=== PATIENT | male | born 1975 | race Caucasian/White ===

== ENCOUNTER 2019-11-26 16:54 | Emergency (ER) | payer OTHER, SELFPAY ==
[2019-11-26] VITALS (13 sets, daily range): BP systolic 122–149; BP diastolic 75–97; PULSE 70–93; RESP 16–22; O2SAT 94–97
--- NOTE | 2019-11-26 16:45 | RT.EKG_ITS ---
APPROVED REPORT Exam: Resting ECG Patient Location: E HR:83 bpm ECG Measurements Heart Rate 83 AXIS TX 168 P 40 QRSd 92 QRS 59 QT 341 T 36 QTc 402 Conclusion Sinus rhythm...normal P axis, V-rate 60- 99
--- NOTE | 2019-11-26 17:06 | ED.GENADUL_ITS ---
Discharge Plan Disposition Patient Disposition: HOME Condition: Good Discharge Details Clinical Impression: Atypical chest pain Primary Care Provider: Merlyn Hood ED Provider: Margaret Knight Home Meds and New Rx's Prescriptions: No Action No Known Home Meds RF: 0 Discharge Instructions Instructions: Chest Pain (ED) Additional Instructions: Continue to encourage water intake. Please follow-up closely with your primary care. Call tomorrow to schedule appointment in the next 1 to 2 weeks. Your exam, labs and imaging are reassuring here today. However, if you develop any increased pain, exertional symptoms, shortness of breath, fevers or any other new/worsening symptoms please seek care urgently once again. Referrals: Merlyn Hood, [employer]PARATION SUPERVISOR [Primary Care Provider] - Discharge Data Discharge Date/Time-TO BE ENTERED AT DEPARTURE: 11/26/19 18:35 Medical Decision Making Patient is a pleasant 44 year old male presenting today with c/c of intermittent chest pain x2 weeks. He states when he has the chest pain is localized to upon size. Left anterior chest. States that it is not reproducible or reliably brought on by any particular activity. He reports he has been trying to monitor for things that may improve or exacerbate his discomfort is not noted any as of yet. 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 He denies any shortness of breath. Denies any nausea vomiting. Denies any radiation of pain. He denies any trauma. No rash. No pain like this historically. He denies any personal or familial history of ischemic cardiac disease. Does not note any change in his appetite or symptoms associated with p.o. intake. On exam, patient is resting comfortably. His exam is benign. He has no pain is reproducible. No rash. Lungs are clear. Normal cardiac exam. Plan to obtain labs chest x-ray. Consider ACS although this is not exertional I find this less likely. Has not had any shortness of breath, O2 saturation is in the high 90s and his heart rate is currently in the 80s. Patient's PERC score is negative. His history and exam is not consistent with aortic injury. He is not given red flags to suggest any esophageal symptoms. At this time, he is asymptomatic. EKG was reviewed by Dr. Spicer. No acute ischemic process is noted. FINDINGS: Lungs: No consolidation. Pleural space: No pleural effusion. No pneumothorax. Heart/Mediastinum: No cardiomegaly. Bones/joints: No acute fracture. IMPRESSION: No acute cardiopulmonary pathology. Labs reviewed. No leukocytosis. Stable H&H. CMP is without any abnormality. Troponin is less than 0.05. At this time, the patient has been asymptomatic but has had this intermittent chest pain for the past 2 weeks, I do not feel that repeat troponin is warranted. However, I would like for him to follow-up closely with his primary care. Patient was given strict return precautions. He seems quite relieved that work-up done thus far has been negative. We did discuss that this could be associate with stress and he finds unlikely will continue to monitor. All his questions and concerns were addressed and is agreement this plan. HPI General Mode of arrival: ambulatory . Date/Time Provider Initiated Documentation: 11/26/19 17:06 . Limitations to Documentation: no limitations . Information obtained by: patient and RN notes reviewed . History of Present Illness 44 year old M presents to the emergency department with the chief complaint of chest pain, described as mild (reports no pain currently), with intensity rated at 2 (when pain is active). Quality is described as other (tight), and is localized to the chest. Patient reports no radiation. Patient started experiencing this week(s) (2) and it has been intermittent (will last a few minutes and spontaneously resolve). No relieving factors improve symptom(s), No exacerbating factors reported (no clear onset, does not notice when he is active) . Patient notes no other symptoms.. Patient did receive the following treatments prior to arrival, none Related Data Home Medications Medication Instructions Recorded Confirmed Unknown [No Known Home Meds] 11/26/19 11/26/19 Allergies Allergy/AdvReac Type Severity Reaction Status Date / Time No Known Allergies Allergy Unverified 11/26/19 17:48 General Stated Complaint: Chest Pain [place]: 2 Review of Systems Constitutional Constitutional: Reports as per HPI, Denies chills, Denies fever(s), Denies headache(s), Denies lethargy and Denies poor appetite Eyes Eyes: Denies change in vision ENT Ears, Nose, Mouth, and Throat: Denies dizziness and Denies headache(s) Cardiovascular Cardiovascular: Reports as per HPI, Denies dyspnea and Denies dyspnea on exertion Respiratory Respiratory: Reports as per HPI, Denies chest congestion, Denies cough, Denies pain on inspiration, Denies pain with cough, Denies dyspnea, Denies dyspnea on e xertion and Denies wheezing Gastrointestinal Gastrointestinal: Reports as per HPI, Denies abdominal pain, Denies diarrhea, Denies nausea and Denies vomiting Genitourinary Genitourinary: Denies system reviewed and no additional complaints, except as documented (denies change in urinary habits) Musculoskeletal Musculoskeletal: Reports as per HPI and Denies back pain Integumentary/Breasts Skin/Breast: Reports as per HPI and Denies rash Neurologic Neurologic: Reports as per HPI, Denies dizziness and Denies headache(s) Allergic/Immunologic Allergic/Immunologic: Denies wheezing [facility] Social History Smoking/Tobacco Use Status: Never Alcohol Intake: never Substance use type: does not use Do you feel safe at home: Yes Do you feel safe in your relationship?: Yes Exam Const General: cooperative, healthy appearing, comfortable, no acute distress and well developed Nutritional Appearance: average body habitus and well nourished Orientation: alert, awake and oriented x3 HENMT Head: normal to inspection Ears: hearing grossly normal bilaterally Mouth: moist mucous membranes Chest Chest: normal inspection of the chest, normal palpation of entire chest wall and no crepitus Resp Effort & Inspection: normal respiratory effort, able to speak in complete sentences and no respiratory distress Auscultation: clear to auscultation bilaterally, no rales, no rhonchi and no wheezes Cardio Rate: regular rate Rhythm: regular rhythm Heart Sounds: S1 normal and S2 normal GI Inspection: normal to inspection, no edema and non-distended Palpation: soft, no hepatosplenomegaly, not firm, no guarding, not rigid and nontender Auscultation: normal bowel sounds Back/Spine/Pelvis Back: no CVA tenderness Thoracic/Lumbar Spine: thoracic and lumbar spine normal to inspection Skin General skin exam: no rashes or lesions noted Trauma: no lacerations or abrasions Neuro General: patient alert, patient awake and patient oriented x3 Cognition: normal cognition Speech: speech normal Gait: normal gait Extrem General: normal to inspection, capillary refill normal, no pedal edema, no calf tenderness and normal gait Psych Appearance: grossly normal and well kempt Mental Status: mental status grossly normal Speech and Movement: speech and movement normal Course Vital Signs Vital signs: Vital Signs Pulse 93 H 11/26/19 17:03 Respiratory Rate 16 11/26/19 17:03 Blood Pressure 149/97 H 11/26/19 17:03 Pulse Oximetry 97 11/26/19 17:03 Temperature Source Tympanic 11/26/19 17:03 Pulse 93 H 11/26/19 17:03 Respiratory Rate 16 11/26/19 17:03 Blood Pressure 149/97 H 11/26/19 17:03 Blood Pressure Position Sitting 11/26/19 17:03 Pulse Oximetry 97 11/26/19 17:03 Oxygen Delivery Method Room Air 11/26/19 17:03 Oxygen Flow Rate 0 11/26/19 17:03 Pain Level 2 11/26/19 17:03
[2019-11-26 17:39] LABS: Abs Immature Grans 0.01 10^3/uL (0.0-0.06); Absolute Basophil Count 0.01 10^3/uL (0.0-0.2); Absolute Eosinophil Count 0.14 10^3/uL (0.0-0.7); Absolute Lymphocyte Count 2.72 10^3/uL (1.2-3.4); Absolute Monocyte Count 0.67 10^3/uL (0.1-0.8); Absolute Neutrophil Count 2.71 10^3/uL (1.2-6.7); Basophils % 0.2; Eosinophils % 2.2; Immature Grans % 0.2; Lymphocytes % 43.5; MCH 29.9 pg (27.0-33.0); MCHC 35.6 % (32.0-36.0); MCV 84.1 fL (80-95); MPV 10.2 fL (8.0-11.0); Monocytes % 10.7; Neutrophils % 43.2; Nucleated RBC 0 %; Platelet Count 228 10^3/uL (130-400); RBC 5.35 10^6/uL (4.36-5.78); RDW 12.5 % (11.8-14.1); RDW-SD 37.3 fL; WBC 6.26 10^3/uL (4.4-10.8)
[2019-11-26 17:53] LABS: ALT 40 U/L (16-63); AST 21 U/L (15-37); Albumin 4.3 g/dL (3.4-5.0); Alkaline Phosphatase 54 U/L (46-116); Anion Gap 8.5 mmol/L (3-11); BUN 18 mg/dL (7-18); Bilirubin, Total 0.7 mg/dL (0.2-1.0); CO2 27.5 mmol/L (21.0-32.0); CREATININE 1.11 mg/dL (0.70-1.30); Calcium 9.5 mg/dL (8.5-10.1); Chloride 105 mmol/L (98-107); Glucose 105 mg/dL (74-106); Magnesium 2.2 mg/dL (1.8-2.4); Potassium 3.8 mmol/L (3.5-5.1); Sodium 141 mmol/L (136-145); Total Protein 7.4 g/dL (6.4-8.2)
[2019-11-26 17:54] LABS: Troponin I < 0.05 ng/mL (<0.06)
--- NOTE | 2019-11-26 18:06 | DI.RAD_ITS ---
EXAM: XR CHEST 2V PA LATERAL CLINICAL HISTORY: CP TECHNIQUE: 2D digital imaging was performed. COMPARISON: CR CHEST 2 VIEWS PA,LAT from 05/06/2008 FINDINGS: MEDIASTINUM: Normal. HEART: Normal. PULMONARY VASCULATURE: Normal. LUNGS: Clear. PLEURAL SPACE: No pleural effusion or pneumothorax. BONE:Within normal limits for the patient's age. OTHER FINDINGS:Normal. IMPRESSION: No acute pulmonary findings. DATA REPOSITORY: RADIATION DOSE DELIVERED:
--- NOTE | 2019-11-26 18:13 | DI.VRAD_ITS ---
PROCEDURE INFORMATION: Exam: XR Chest, 2 Views Exam date and time: 11/26/2019 18:03 Age: 44 years old Clinical indication: Chest pain TECHNIQUE: Imaging protocol: XR of the chest Views: 2 views. COMPARISON: No relevant prior studies available. FINDINGS: Lungs: No consolidation. Pleural space: No pleural effusion. No pneumothorax. Heart/Mediastinum: No cardiomegaly. Bones/joints: No acute fracture. IMPRESSION: No acute cardiopulmonary pathology. Dictated and Authenticated by: Azalea Kilpatrick MD. Ordering:EMMANUEL Robles MD
== END 2019-11-26 18:35 | disposition home or self-care (01) ==
PROVIDERS: Emergency Provider Physician Assistant; PCP Nurse Practitioner Family
DX: R07.89 Other chest pain (principal)
CPT/HCPCS: 36415; 80053; 93005; 99285; 71046; 83735; 84484; 85025; 93010; 99284

== ENCOUNTER 2021-04-04 14:28 | Outpatient (REF) | payer BC, SELFPAY ==
[2021-04-05 11:03] LABS: Campylobacter PCR Negative (Negative); Salmonella PCR Negative (Negative); Shiga Toxin PCR Negative (Negative); Shigella/Enteroinvasive Ecoli Negative (Negative)
== END 2021-04-04 14:29 | disposition home or self-care (01) ==
LOC: NCHCN 14:28
PROVIDERS: PCP Nurse Practitioner Family; Visit Provider Physician Assistant
DX: R19.7 Diarrhea, unspecified (principal)
CPT/HCPCS: 87329; 87505

== ENCOUNTER 2021-06-12 02:09 | Outpatient (CLI) | payer BC, SELFPAY ==
[2021-06-12 09:35] LABS: Source Nasal/Nares
[2021-06-12 12:08] LABS: COVID-19 PCR Negative (Negative)
== END 2021-06-12 02:10 | disposition home or self-care (01) ==
LOC: LBO 02:09
PROVIDERS: PCP Physician Assistant; Visit Provider Surgery
DX: Z20.822 Contact with and (suspected) exposure to COVID-19 (principal); Z01.818 Encounter for other preprocedural examination
CPT/HCPCS: 87635

== ENCOUNTER 2021-06-13 07:04 | Day surgery (SDC) | payer BC, SELFPAY ==
--- NOTE | 2021-06-12 12:12 | W.PM.DSUDISC ---
Discharge Plan Disposition Patient Disposition: HOME Condition: Good Discharge Details Reason For Visit: colons scope Attending Provider: Akilah Queen Primary Care Provider: Jose Manuel Rivas Home Meds and New Rx's Prescriptions: Discontinued bisacodyl [Dulcolax (bisacodyl)] 5 mg tablet,delayed release (DR/EC) 5 mg PO ONCE Qty: 4 0RF Rx Instructions: Take according to provider's instructions for colonoscopy prep. polyethylene glycol 3350 17 gram/dose powder 17 g PO ONCE Qty: 238 0RF Rx Instructions: To be taken as directed by prescriber's office for colonoscopy prep. Discharge Instructions Additional Instructions: DSU Colonoscopy Post-Op Instructions Instructions for Everyone who is given Anesthesia: For your safety, please do the following for the next twenty-four (24) hours: *Do Not operate a motor vehicle (car, truck, motorcycle, etc.) *Do Not drink alcoholic beverages or use any recreational drugs for the first 24 hours or while taking pain medications. The medications in your body may have a reaction that can be dangerous. *Do Not make any important decisions or sign any important papers. Findings: Follow up: 1. No lifting over 20 pounds or strenuous activity for the first 24 hours after your procedure. After 24 hours there are no restrictions on your activity but you may feel fatigued for a few days. 2. After you arrive home you may have a light meal and return to your normal diet as you can tolerate it without feeling sick to your stomach. 3. You may have a bloated, gaseous feeling in your belly (abdomen) after a colonoscopy. Passing gas and belching will help. Walking or lying down on your left side with your knees flexed may relieve the discomfort. Call the office at [phone] (Office) or [phone] (Hospital) right away if you notice any of the following: a.Vomiting of blood or ?coffee ground stools?. b.Rectal bleeding 1Tbsp, blood clots or continuous bleeding. c.Severe belly (abdominal) pain. d.A hard distended belly (abdomen) and an inability to pass gas. 4. Please don?t expect to have a normal BM (bowel movement) for 2-3 days after your procedure. 5. If there are questions regarding the findings of your procedure, please contact your doctor 6. If you are unable to contact your doctor with a problem, contact the [facility] at [phone]. 7. Continue all your regular medications unless directed otherwise. I understand the above instructions and have no questions. Signature of Patient or Adult Escort Name of Responsible Adult Escort Signature of Nurse Date/Time Activity:: see above Diet:: see above
--- NOTE | 2021-06-12 12:13 | W.COLOREPORT ---
Colonoscopy Report Date of procedure: 06/13/21 Pre-op diagnosis general: bloody diarrhea Surgeon: Akilah Queen Anesthesia Type: General:No Airway Disposition: same day Prep: Miralax/Dulcolax Retraction Time: 10 Procedure Description: After informed consent was obtained the patient was taken to the procedure room and placed in a left decubitous position. Monitors were applied and a time out was done. The patients name, date of , procedure, allergies to medications and metal in their body was reviewed. The patient was then sedated. Once sedated and comfortable a rectal exam was done. External exam was normal. Internal exam revealed a normal sphincter tone and no palpable masses. The scope was then introduced and retrofelexed. No internal hemorrhoids were identified. A few small internal hemorrhoidal tags but otherwise normal. The scope was then advanced to the cecum w/out difficulty. The TI and appendiceal orifice were identified. The terminal ileum was intubated. It does appear normal. Biopsies were taken. The prep was bps 3 in all segments for a total of 9. The scope was then slowly retracted over 10 minutes back into the rectum. There are no polyps/AVMs/diverticula visualized today. The mucosa and vascular pattern appeared normal. There is no signs of chronic inflammatory bowel disease. There is no anal rectal disease. There are no fissures. There is no external hemorrhoids. There is no internal hemorrhoids. There are some old internal hemorrhoidal tags which may indicate that he has had internal hemorrhoids in the past. Was removed and the patient was woken up and taken back to Same day surgery in stable condition. The patient tolerated the procedure well and there were no immediate complications. Follow up: The patient should follow up in 10 years unless they develop changes in bowel habits or other new gastrointestinal complaints.
[2021-06-13 07:42] VITALS: BP 138/105; PULSE 82; RESP 16; TEMP 36.8; O2SAT 97
[2021-06-13] MEDS: Lactated Ringers 1,000 ML 80 ML IV (08:11)
--- NOTE | 2021-06-13 08:13 | W.ANESPRE ---
General Info Date of Service Date Performed: 06/13/21 Height: 5 ft 10 in Weight: 103 kg Body Mass Index (BMI): 32.5 Surgical Procedure: Operation Date: 06/13/21 08:35 Proposed Procedure Side Surgeon p Sravani Queen DO Meds Allergies and Home Medications Allergies Allergy/AdvReac Type Severity Reaction Status Date / Time No Known Allergies Allergy Unverified 06/13/21 07:45 Current Visit Medications: Current Medications Generic Name Dose Route Start Last Admin Trade Name Freq PRN Reason Stop Dose Admin Hyoscyamine Sulfate 0.125 mg 06/12/21 10:13 Hyoscyamine 0.125 Mg Sl/Oral/Chew SL DIRECTED PRN Ringer's Solution 1,000 mls @ 80 mls/hr 06/13/21 06:00 06/13/21 08:11 IV 07/12/21 23:59 80 mls/hr INFUSION SHIREEN Administration IV Miscellaneous Supplies 1 each 06/13/21 06:00 Iv Access IV 07/12/21 23:59 DIRECTED SHIREEN Ondansetron HCl 4 mg 06/12/21 10:13 Ondansetron 4 Mg/2 Ml Vial IVP Q4H PRN PRN Nausea / Vomiting Sodium Chloride 0 ml 06/13/21 06:00 Normal Saline Flush 10 Ml Syr IV 07/12/21 23:59 PRN PRN Sodium Chloride 0 ml 06/13/21 06:00 Normal Saline 10 Ml Vial IJ 07/12/21 23:59 DIRECTED PRN Sterile Water 0 ml 06/13/21 06:00 Water,Injection,Sterile 10 Ml Vial IJ 07/12/21 23:59 DIRECTED PRN PFSH Active Problems Active Problems: Problem Status Onset Code Bloody diarrhea R19.7 Medical History Medical History Blood glucose elevated Hypertriglyceridemia Surgical History Surgical History Hx of colonoscopy Tobacco Smoking/Tobacco Use Status: Never Alcohol Alcohol Intake: current Alcohol intake frequency: 0-2 drinks per day Alcohol type: beer Substance Use Substance use: Rarely Substance use type: does not use Details: alcohol: t-3 one beer Vital Signs and Lab Results Vital Signs Most Recent Vital Signs in EMR: Most Recent Vital Signs Temp Pulse Resp BP Pulse Ox 36.8 C 82 16 138/105 H 97 06/13/21 07:42 06/13/21 07:42 06/13/21 07:42 06/13/21 07:42 06/13/21 07:42 Lab Results Blood Type / Crossmatch: No Data to Display Complete Blood Count: No Data to Display Complete Metabolic Panel: C-Reactive Protein Pending 06/13/21 08:05 06/13/21 Liver Function Panel: No Data to Display Coagulation Panel: No Data to Display Cardiac Panel: No Data to Display Arterial Blood Gas: No Data to Display Venous Blood Gas: No Data to Display Pancreas Panel: No Data to Display Thyroid Panel: No Data to Display Infectious Disease: Coronavirus (COVID-19)(PCR) Negative (Negative) 06/12/21 08:45 06/12/21 Coronavirus 2019 Source Nasal/Nares 06/12/21 08:45 06/12/21 Blood Cultures: No Data to Display Toxicology Panel: No Data to Display Imaging and Studies Imaging and Studies Study information below may be from another EMR and interpreted by another provider. Please see original notes in EMR for more complete details. EKG Summary: Conclusion Sinus rhythm...normal P axis, V-rate 60- 99 11/26/19 Anesthesia Assessment and Plan Anesthesia History Personal History: No History of Anesthesia Complications and Other Family History: No Family History of Anesthesia Complications Exercise Tolerance Exercise Tolerance: Metabolic Equivalents>4 Pertinent Negatives Pertinent Negatives: No Symptoms of GERD, No Major Cardiovascular Symptoms or Complaints, No Major Pulmonary Symptoms or Complaints and No History of CVA/TIA Cardiac & Pulmonary Exam Cardiac Exam: Normal S1/S2 Heart Sounds Pulmonary Exam: Clear Bilateral Breath Sounds Implantable Cardiac Device Does patient have a Pacemaker or an ICD?: No Airway Exam Known Difficult Airway: No Mallampati Class: 2 Mouth Opening: Normal (> 3cm) Thyromental Distance: Greater than 3 cm Facial Hair: Full [place] Neck Range of Motion: Full ROM Neck Circumference: Normal Teeth Condition: Normal Dentition ASA Classification ASA Score: ASA 2 Emergency Case?: No NPO Status NPO Status: NPO Clears >2 hours, Solids >8 hours Anesthesia Plan Resuscitation Status: Full Code Anesthesia Technique: General Anesthesia Airway Planned: Natural Airway Monitors Used: Standard Monitors
[2021-06-13 08:14] VITALS: BMI 32.5
[2021-06-13 08:27] LABS: C-Reactive Protein < 0.05 mg/dL (0.0-0.3)
[2021-06-13 08:30] LABS: Abs Immature Grans 0.01 10^3/uL (0.0-0.06); Absolute Basophil Count 0.02 10^3/uL (0.0-0.2); Absolute Lymphocyte Count 2.73 10^3/uL (1.2-3.4); Absolute Monocyte Count 0.71 10^3/uL (0.1-0.8); Absolute Neutrophil Count 2.86 10^3/uL (1.2-6.7); Basophils % 0.3; Eosinophils % 1.6; HGB 17.2 g/dL (13.5-17.5); Immature Grans % 0.2; Lymphocytes % 42.5; MCH 29.6 pg (27.0-33.0); MCHC 35.1 % (32.0-36.0); MCV 84.3 fL (80-95); MPV 9.6 fL (8.0-11.0); Neutrophils % 44.4; Nucleated RBC 0 %; Platelet Count 230 10^3/uL (130-400); RBC 5.81 10^6/uL (4.36-5.78); RDW 12.6 % (11.8-14.1); RDW-SD 38.5 fL; WBC 6.43 10^3/uL (4.4-10.8)
--- NOTE | 2021-06-13 08:40 | BOWEL_PTH ---
PATIENT: Wilfrido Sanchez LOC: [facility] U#:[id number] AGE/SX: 45/M ROOM: RE06/13/[address]: Akilah Queen : 1975 BED: DIS: 06/13/2021 SPEC #: [id number] RECD: 06/13/21 12:49 STATUS: DANDY REQ #: [id number] HAIDER: 06/13/21 08:[address]: Akilah Queen DEPT: Surgical Specimen RECD BY: Paula Zhang ENTERED: 06/13/21 12:51 SP TYPE: Bowel OTHR DR: Jose Manuel Rivas Tissues: 1 - BIOPSY BOWEL 2 - BIOPSY BOWEL 3 - BIOPSY BOWEL 4 - BIOPSY BOWEL 5 - BIOPSY BOWEL 6 - BIOPSY BOWEL Procedures: GROSS AND MICRO LEVEL 4 Comments: [id number]
[2021-06-13 08:58] VITALS: BP 120/86; PULSE 81; RESP 20; TEMP 36.3; O2SAT 95
--- NOTE | 2021-06-13 09:15 | PDOC.DSDIS_ITS ---
Discharge Plan Disposition Patient Disposition: HOME Condition: Good Discharge Details Reason For Visit: colons scope Attending Provider: Akilah Queen Primary Care Provider: Jose Manuel Rivas Home Meds and New Rx's Prescriptions: Discontinued bisacodyl [Dulcolax (bisacodyl)] 5 mg tablet,delayed release (DR/EC) 5 mg PO ONCE Qty: 4 0RF Rx Instructions: Take according to provider's instructions for colonoscopy prep. polyethylene glycol 3350 17 gram/dose powder 17 g PO ONCE Qty: 238 0RF Rx Instructions: To be taken as directed by prescriber's office for colonoscopy prep. Discharge Instructions Additional Instructions: DSU Colonoscopy Post- Op Instructions Instructions for Everyone who is given Anesthesia: For your safety, please do the following for the next twenty-four (24) hours: *Do Not operate a motor vehicle (car, truck, motorcycle, etc.) *Do Not drink alcoholic beverages or use any recreational drugs for the first 24 hours or while taking pain medications. The medications in your body may have a reaction that can be dangerous. *Do Not make any important decisions or sign any important papers. Findings:normal scope repeat in 10 yrs Follow up:f/u Dr. Queen in 3-4 wks time for biopsy results 1. No lifting over 20 pounds or strenuous activity for the first 24 hours after your procedure. After 24 hours there are no restrictions on your activity but you may feel fatigued for a few days. 2. After you arrive home you may have a light meal and return to your normal diet as you can tolerate it without feeling sick to your stomach. 3. You may have a bloated, gaseous feeling in your belly (abdomen) after a colonoscopy. Passing gas and belching will help. Walking or lying down on your left side with your knees flexed may relieve the discomfort. Call the office at [phone] (Office) or [phone] (Hospital) right away if you notice any of the following: a.Vomiting of blood or ?coffee ground stools?. b.Rectal bleeding 1Tbsp, blood clots or continuous bleeding. c.Severe belly (abdominal) pain. d.A hard distended belly (abdomen) and an inability to pass gas. 4. Please don?t expect to have a normal BM (bowel movement) for 2-3 days after your procedure. 5. If there are questions regarding the findings of your procedure, please contact your doctor 6. If you are unable to contact your doctor with a problem, contact the hospital at [phone]. 7. Continue all your regular medications unless directed otherwise. I understand the above instructions and have no questions. Signature of Patient or Adult Escort Name of Responsible Adult Escort Signature of Nurse Date/Time Activity:: see above Diet:: see above
--- NOTE | 2021-06-13 09:20 | W.ANESPOSTOP ---
Postoperative Evaluation Date, Time and Location Date Performed: 06/13/21 Time Performed: 08:58 Patient Location: Day Surgery Unit Vital Signs Most Recent Imported Vital Signs: Most Recent Vital Signs Temp Pulse Resp BP Pulse Ox 36.3 C L 81 20 120/86 95 06/13/21 08:58 06/13/21 08:58 06/13/21 08:58 06/13/21 08:58 06/13/21 08:58 Pain Score Most Recent Pain Score: Most Recent Pain Score Pain Level 0 06/13/21 08:58 Assessment Mental Status: Awake (Alert & Oriented to Patient Baseline) Airway and Respiratory Function: Patent airway with normal (patient baseline) respiratory exam Cardiovascular Function: Hemodynamically Stable Hydration Status: Adequately Hydrated Nausea & Vomiting: No Nausea or Vomiting Pain: Pt. Denies Any Pain Peripheral Nerve Block: Patient did not receive a nerve block
[2021-06-13 09:40] VITALS: BP 135/101; PULSE 73; RESP 16; TEMP 36.4; O2SAT 98
[2021-06-15 15:55] LABS: ANCA Interpretation Negative (Negative)
== END 2021-06-13 09:49 | disposition home or self-care (01) ==
LOC: SUR 07:04
PROVIDERS: PCP Physician Assistant; Visit Provider Surgery
PROC: 0DJD8ZZ Inspection of Lower Intestinal Tract, Via Natural or Artificial Opening Endoscopic (ICD-10-PCS; CPT 45378; principal; 2021-06-13 08:30)
DX: K92.1 Melena (principal); E78.1 Pure hyperglyceridemia; R73.9 Hyperglycemia, unspecified; K63.89 Other specified diseases of intestine
CPT/HCPCS: 45380; 36415; 86255; 88305; 85025; 86140; J2001

== ENCOUNTER → 2023-09-27 12:17 | Outpatient (CLI) | payer BC, SELFPAY ==
--- NOTE | 2023-09-27 14:55 | DI.RAD_ITS ---
Exam(s) XR STERNUM EXAM: XR STERNUM CLINICAL HISTORY: TENDER ENLARGEMENT OF XIPHOID,s23.428a. TECHNIQUE: 2D digital imaging was performed. COMPARISON: CR,XR XR CHEST 2V PA LATERAL from 11/26/2019 FINDINGS: 3 views No evidence of sternal fracture nor retrosternal mass to suggest retrosternal hematoma. There does, however, appear to be slight expansion of lower sternum as seen on the lateral view. This, however, does not appear significantly different from lateral chest x-ray performed November 2019. In addition, I note that the most inferior aspect of the sternum-xiphoid process is not completely in cluded in the field of view on the lateral image IMPRESSION: As above. Given that the clinical findings are apparently in the region of the xiphoid I recommend r epeat cone down lateral view of the most inferior sternum-xiphoid process to include the entire xipho id process. Alternatively, CT scan can be performed DATA REPOSITORY: RADIATION DOSE DELIVERED:
== END ==
PROVIDERS: PCP Physician Assistant; Visit Provider Physician Assistant
DX: S23.428A Other sprain of sternum, initial encounter (principal)
CPT/HCPCS: 71120

== ENCOUNTER → 2023-10-04 00:12 | Outpatient (CLI) | payer BC, SELFPAY ==
--- NOTE | 2023-10-04 07:51 | DI.RAD_ITS ---
Exam(s) XR STERNUM EXAM: XR STERNUM CLINICAL HISTORY: XIPHOID CARTILAGE SPRAIN, S23.428A, F/U XRAY 09/26. TECHNIQUE: 2D digital imaging was performed. COMPARISON: CR XR STERNUM from 09/27/2023 FINDINGS: BONES: No acute fracture is present. No bony destructive lesion is seen. The xiphoid is well seen on the lateral view. JOINTS: No dislocation present. SOFT TISSUE: Normal. IMPRESSION: Unremarkable radiographs of the sternum. DATA REPOSITORY: RADIATION DOSE DELIVERED:
== END ==
PROVIDERS: PCP Physician Assistant; Visit Provider Physician Assistant
DX: S23.428A Other sprain of sternum, initial encounter (principal)
CPT/HCPCS: 71120

== ENCOUNTER 2023-10-10 01:45 | Outpatient (CLI) | payer BC, SELFPAY ==
[2023-10-10 10:16] LABS: ALT 46 U/L (16-63); AST 22 U/L (15-37); Albumin 3.9 g/dL (3.4-5.0); Alkaline Phosphatase 60 U/L (46-116); Anion Gap 5.7 mmol/L (3-11); BUN 17 mg/dL (7-18); Bilirubin, Total 0.76 mg/dL (0.2-1.0); CO2 28.3 mmol/L (21.0-32.0); CREATININE 0.9 mg/dL (0.70-1.30); Calcium 9.2 mg/dL (8.5-10.1); Calculated LDL 119 mg/dL (<100); Chloride 108 mmol/L (98-107); Cholesterol 191 mg/dL (<200); Estimated GFR 105.35 (mL/min/1.73m2); Glucose 108 mg/dL (74-106); HDL Cholesterol 40 mg/dL (40-60); Potassium 4.5 mmol/L (3.5-5.1); Sodium 142 mmol/L (136-145); Triglyceride 163 mg/dL (<150)
[2023-10-10 11:21] LABS: Hemoglobin A1C 4.7 % (<5.7)
== END 2023-10-10 01:46 | disposition home or self-care (01) ==
PROVIDERS: PCP Physician Assistant; Visit Provider Physician Assistant
DX: Z13.1 Encounter for screening for diabetes mellitus (principal); E78.5 Hyperlipidemia, unspecified
CPT/HCPCS: 36415; 80053; 80061; 83036

== ENCOUNTER 2024-05-01 17:49 | Emergency (ER) | payer BC, SELFPAY ==
[2024-05-01 17:53] VITALS: BP 157/94; PULSE 92; RESP 20; TEMP 36.8; O2SAT 98
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
--- NOTE | 2024-05-01 19:08 | DI.RAD_ITS ---
Exam(s) XR SCAPULA RT EXAM: XR SCAPULA RT CLINICAL HISTORY: fracture. TECHNIQUE: 2D digital imaging was performed. Two views. COMPARISON: CR XR SHOULDER RT COMPLETE 2+V from 05/01/2024 FINDINGS: BONES: There is a fracture involving the superior aspect of the scapula. There appears to be few com minuted fragments. The body of the scapula, coracoid and glenoid appear intact. No clavicle or prox imal humeral fractures are seen. The visualized ribs appear intact.. No bony destructive lesion is seen. JOINTS: No dislocation present. The AC joint is not widened. SOFT TISSUE: Tiny right apical pneumothorax. IMPRESSION: Fracture at the superior border of the scapula. Tiny right apical pneumothorax. DATA REPOSITORY: RADIATION DOSE DELIVERED:
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
[2024-05-01] MEDS: Ibuprofen 600 MG TAB PO (19:11)
[2024-05-01 19:38] VITALS: BP 138/95; PULSE 90; RESP 19; TEMP 37; O2SAT 95
--- NOTE | 2024-05-01 19:56 | DI.VRAD_ITS ---
PROCEDURE INFORMATION: Exam: XR Chest Exam date and time: 05/01/2024 7:06 PM Age: 48 years old Clinical indication: Other: Scapula fracture, eval pneumothorax TECHNIQUE: Imaging protocol: Radiologic exam of the chest. Views: 1 view. COMPARISON: CR XR CHEST 2V PA LATERAL 11/26/2019 6:02 PM FINDINGS: Lungs: Lungs are clear with no infiltrate or nodule. Pleural spaces: There is suggestion of a very tiny right apical pneumothorax with only 1-2 mm displacement of the visceral pleural line. This is actually better seen on the radiographs of the scapula. Heart/Mediastinum: Cardiomediastinal silhouette is normal. Bones/joints: There is a fracture of the right scapula. No definite rib fracture seen. IMPRESSION: Right scapular fracture. Suspect tiny right apical pneumothorax. Dictated and Authenticated by: Dada Escobar MD. Orderin [facility] Michael MD
--- NOTE | 2024-05-01 19:58 | DI.VRAD_ITS ---
Addendum created by Dada Escobar MD on 05/01/2024 8:03:00 PM EST: THIS REPORT CONTAINS FINDINGS THAT MAY BE CRITICAL TO PATIENT CARE. The findings were verbally communicated by me to Fernanda Patel via telephone conference at 8:02 PM EST on 05/01/2024. The findings were acknowledged and understood. Initial report created on 05/01/2024 7:58:25 PM EST: PROCEDURE INFORMATION: Exam: XR Right Scapula Exam date and time: 05/01/2024 7:01 PM Age: 48 years old Clinical indication: Other: Fracture TECHNIQUE: Imaging protocol: Radiologic exam of the right scapula. Complete exam. COMPARISON: CR XR SHOULDER RT COMPLETE 2+V 05/01/2024 6:28 PM FINDINGS: Bones/joints: There is a nondisplaced fracture involving the superior margin of the right scapular body. Glenohumeral and acromioclavicular joints appear intact. Pleural spaces: There may be a very tiny right apical pneumothorax with no more than 1-2 mm displacement of the visceral pleural line. Soft tissues: Normal. IMPRESSION: Scapular fracture. Suspect tiny right apical pneumothorax. Dictated and Authenticated by: Dada Escobar MD. Orderin [facility] Michael MD
--- NOTE | 2024-05-01 21:10 | ED.FU.B_ITS ---
Date of service: 05/01/24 Time of Service: 21:10 Follow Up Plan: I was contacted by Raz gan, who noted a very tiny possible pneumothorax at the apex of the right lung. 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 The patient had already left the hospital, I contacted him by phone and discussed this finding with him. He is not experiencing any shortness of breath, chest pain, and did not have any hypoxia while at the emergency department. I did make him aware that if he was to develop any of the symptoms he needs to return to the emergency department immediately for reevaluation for expanding pneumothorax. The patient had an opportunity to have all questions answered and is understanding of the ongoing follow-up plan. Fernanda Patel MD
== END 2024-05-01 19:38 | disposition home or self-care (01) ==
PROVIDERS: Emergency Provider Emergency Medicine; PCP Physician Assistant
DX: S42.191A Fracture of other part of scapula, right shoulder, initial encounter for closed fracture (principal); V86.52XA Driver of snowmobile injured in nontraffic accident, initial encounter; R91.8 Other nonspecific abnormal finding of lung field
CPT/HCPCS: 99284; 71045; 73010; 73030

== ENCOUNTER 2024-05-19 15:41 | Outpatient (CLI) | payer BC, SELFPAY ==
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
== END 2024-05-19 15:42 | disposition home or self-care (01) ==
LOC: DIORS 15:41
PROVIDERS: PCP Physician Assistant; Visit Provider Student in an Organized Health Care Education/Training Program
DX: S42.191D Fracture of other part of scapula, right shoulder, subsequent encounter for fracture with routine healing (principal); X58.XXXD Exposure to other specified factors, subsequent encounter
CPT/HCPCS: 73030

== ENCOUNTER 2024-06-23 08:44 | Outpatient (CLI) | payer BC, SELFPAY ==
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
== END 2024-06-23 08:45 | disposition home or self-care (01) ==
LOC: DIORS 08:44
PROVIDERS: PCP Physician Assistant; Visit Provider Student in an Organized Health Care Education/Training Program
DX: S42.101A Fracture of unspecified part of scapula, right shoulder, initial encounter for closed fracture (principal)
CPT/HCPCS: 73020

== ENCOUNTER 2024-08-25 09:05 | Outpatient (CLI) | payer BC, SELFPAY ==
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
== END 2024-08-25 09:06 | disposition home or self-care (01) ==
LOC: DIORS 09:05
PROVIDERS: PCP Physician Assistant; Visit Provider Student in an Organized Health Care Education/Training Program
DX: S42.101A Fracture of unspecified part of scapula, right shoulder, initial encounter for closed fracture (principal); S43.101A Unspecified dislocation of right acromioclavicular joint, initial encounter
CPT/HCPCS: 73020